=== PATIENT | female | born 2005 | race Caucasian/White ===

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

== ENCOUNTER 2024-01-29 10:36 | Day surgery (SDC) | payer OTHER, SELFPAY ==
[2024-01-29] VITALS (12 sets, daily range): BP systolic 118–140; BP diastolic 68–95; PULSE 59–94; RESP 12–16; TEMP 36.2–36.7; O2SAT 93–100; BMI 20.4
[2024-01-29 11:06] LABS: Ur HCG Qualitative* Negative (Negative)
[2024-01-29] MEDS: SODIUM CHLORIDE 0.9 % (FLUSH) 10 ML SYRINGE IVF (11:20)
[2024-01-29] MEDS: LACTATED RINGERS 1000 ML 1,000 ML 100 ML IV (11:20)
[2024-01-29] MEDS: OXYMETAZOLINE 0.05% NASAL SPRAY 2 SPRAY NOSTRIL-B (11:25)
[2024-01-29] MEDS: BUPIVACAINE 0.5 %/EPI 1:200K 30 ML INJECTION (12:08)
[2024-01-29] MEDS: COCAINE HCL 4 % 4 ML SOLUTION NOSTRIL-B (12:08)
--- NOTE | 2024-01-29 12:33 | P.ENTPROC_ITS ---
Procedure Note Date of procedure: 01/29/24 Procedure: Preoperative diagnosis chronic tonsillitis, adenotonsillar hypertrophy, upper airway obstruction, nasal obstruction, nasal obstruction, left anterior deviated septum Postoperative diagnosis same Procedure adenotonsillectomy, nasal septoplasty Under general endotracheal anesthesia the patient was prepped and draped in usual fashion. The McIvor mouth gag was inserted the tongue retracted forward. No submucous cleft was noted on inspection or palpation. The right and left tonsils were removed with a combination of needlepoint cautery, bipolar cautery and suction cautery. Meticulous hemostasis was achieved. The adenoid pad was visualized with a laryngeal mirror and removed with suction cautery. After gowning gloving attention was turned to the nose. The nose was decongested injected. A right hemitransfixion incision was made and bilateral anterior tunnels were created. A vertical incision was made through the cartilage anterior to the bony cartilaginous junction. An inferior rim of septal cartilage measuring 1 mm in height was removed the with normal mouth for dorsal and tip support. This allowed the septum to be medialized. The hemitransfixion was closed with 2 4-0 chromic sutures and silastic stents s ecured with 3-0 nylon. Dissolvable gel packing was placed in the left nasal cavity. Patient procedure well. The patient was extubated in the operating room taken recovery in satisfactory condition. Blood loss was less than 10 mL. Surgeon: Hung Matrinez MD
--- NOTE | 2024-01-29 12:35 | W.ANESCHARGE ---
Anesthesia Charges Start Date/Time Anesthesia Start Date: 01/29/24 Anesthesia Start Time: 11:48 Stop Date/Time Anesthesia Stop Date: 01/29/24 Anesthesia Stop Time: 12:53
--- NOTE | 2024-01-29 12:57 | W.ANESCHARGE ---
Anesthesia Charges Start Date/Time Anesthesia Start Date: 01/29/24 Anesthesia Start Time: 11:48 Stop Date/Time Anesthesia Stop Date: 01/29/24 Anesthesia Stop Time: 12:53
[2024-01-29] MEDS: fentaNYL 100 MCG/2 ML inj 50 MCG IVP (13:05)
[2024-01-29] MEDS: IBUPROFEN 100 MG/5 ML SUSP 200 MG PO (13:30)
[2024-01-29] MEDS: ACETAMINOPHEN 160 MG/5 ML CUP 320 MG PO (13:30)
--- NOTE | 2024-01-29 14:09 | SUR.PHASEII ---
Patient states it felt weird to breathe. Patient has hx of asthma. Denies it feeling like asthma. Lungs are clear bilaterally. Breathing regular. O2 sat 98% on 6L Blow by humidified. 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 She further independently adjusted her sitting position and now denies any concerns regarding her breathing.
== END 2024-01-29 15:02 | disposition home or self-care (01) ==
PROVIDERS: PCP Family Medicine; Visit Provider Otolaryngology
PROC: (CPT 42821; principal; 2024-01-29 12:00)
DX: J35.01 Chronic tonsillitis (principal); J35.3 Hypertrophy of tonsils with hypertrophy of adenoids; J34.89 Other specified disorders of nose and nasal sinuses; J34.2 Deviated nasal septum
CPT/HCPCS: 42821; 30520; 00160; 00170; 81025; 88304; A9270; J0330; J1100; J1170; J1630; J2405; J2704; J3010; J3490; J7120